=== PATIENT | female | born 1945 | race Caucasian/White ===

== ENCOUNTER → 2017-03-12 | Outpatient (CLI) | payer OTHER ==
[2017-03-12 13:09] LABS: ALT/SGPT 29 U/L (12-78); BLOOD UREA NITROGEN 17 mg/dl (7-18); BUN/CREATININE RATIO 19.5 (10-20); CARBON DIOXIDE 31 mmol/L (21-32); CHLORIDE 103 mmol/L (98-107); CHOLESTEROL 170 mg/dl (0-200); CREATININE 0.87 mg/dl (0.60-1.20); GLUCOSE 106 mg/dl (70-99); POTASSIUM 3.3 mmol/L (3.5-5.1); SODIUM 142 mmol/L (136-145); TRIGLYCERIDES 149 mg/dl (0-150); VERY LOW DENSITY LIPOPROT CALC 30 mg/dl
[2017-03-12 13:11] LABS: CALCIUM 10.5 mg/dl (8.5-10.1)
[2017-03-12 13:13] LABS: CHOLESTEROL/HDL RATIO 2.7; HDL CHOLESTEROL 62 mg/dl
[2017-03-12 13:17] LABS: ESTIMATED AVERAGE GLUCOSE 114 mg/dl; HA1C FLAG Normal (Normal)
== END | disposition home or self-care (01) ==
LOC: C.LABMFLN 07:55
PROVIDERS: ATTEND Family Medicine
DX: E78.5 Hyperlipidemia, unspecified (principal); I10 Essential (primary) hypertension; R73.01 Impaired fasting glucose; E55.9 Vitamin D deficiency, unspecified; E83.52 Hypercalcemia

== ENCOUNTER → 2017-05-26 | Outpatient (CLI) | payer OTHER | END | disposition home or self-care (01) | LOC: C.MAMM 08:27 | PROVIDERS: ATTEND Family Medicine | DX: Z13.820 Encounter for screening for osteoporosis (principal); M85.89 Other specified disorders of bone density and structure, multiple sites ==

== ENCOUNTER → 2017-09-10 | Outpatient (CLI) | payer OTHER ==
[2017-09-10 13:36] LABS: ALT/SGPT 27 U/L (12-78); BLOOD UREA NITROGEN 12 mg/dl (7-18); BUN/CREATININE RATIO 16.7 (10-20); CALCIUM 9.6 mg/dl (8.5-10.1); CARBON DIOXIDE 28 mmol/L (21-32); CHLORIDE 106 mmol/L (98-107); CREATININE 0.73 mg/dl (0.60-1.20); GLUCOSE 98 mg/dl (70-99); POTASSIUM 3.5 mmol/L (3.5-5.1); SODIUM 139 mmol/L (136-145)
== END | disposition home or self-care (01) ==
LOC: C.LABMFLN 07:30
PROVIDERS: ATTEND Family Medicine
DX: E78.5 Hyperlipidemia, unspecified (principal); I10 Essential (primary) hypertension

== ENCOUNTER → 2017-09-16 | Outpatient (CLI) | payer OTHER | END | disposition home or self-care (01) | LOC: C.LABMFLN 15:38 | PROVIDERS: ATTEND Family Medicine | DX: E83.52 Hypercalcemia (principal) ==

== ENCOUNTER → 2017-09-17 | Outpatient (CLI) | payer OTHER | END | disposition home or self-care (01) | LOC: C.LABMFLN 16:41 | PROVIDERS: ATTEND Family Medicine | DX: E83.52 Hypercalcemia (principal) ==

== ENCOUNTER → 2017-10-10 | Outpatient (CLI) | payer OTHER ==
[2017-10-10 12:51] LABS: HEMATOCRIT 40.2 % (37-47); HEMOGLOBIN 13.3 g/dL (12.0-16.0); MEAN CELL VOLUME 92.8 fL (80-100); MEAN CORPUSCULAR HEMOGLOBIN 30.7 pg (25-34); MEAN CORPUSCULAR HGB CONC 33.1 g/dl (32-36); PLATELET COUNT 311 K/uL (130-400); RED CELL DISTRIBUTION WIDTH CV 13.2 % (11.5-14.5); RED CELL DISTRIBUTION WIDTH SD 44.9 fL (36.4-46.3); WHITE BLOOD COUNT 6.45 K/uL (4.8-10.8)
== END | disposition home or self-care (01) ==
LOC: C.LABMFLN 10:08
PROVIDERS: ATTEND Family Medicine
DX: C50.919 Malignant neoplasm of unspecified site of unspecified female breast (principal); T14.8XXA Other injury of unspecified body region, initial encounter; X58.XXXA Exposure to other specified factors, initial encounter

== ENCOUNTER → 2017-10-29 | Outpatient (CLI) | payer OTHER ==
[2017-10-29 13:20] LABS: ALBUMIN 4.1 gm/dl (3.4-5.0); BLOOD UREA NITROGEN 17 mg/dl (7-18); CALCIUM 9.7 mg/dl (8.5-10.1); CARBON DIOXIDE 28 mmol/L (21-32); GLUCOSE 100 mg/dl (70-99); POTASSIUM 3.4 mmol/L (3.5-5.1); SODIUM 141 mmol/L (136-145)
[2017-10-29 13:30] LABS: PHOSPHORUS 3.4 mg/dl (2.5-4.9)
== END | disposition home or self-care (01) ==
LOC: C.LABMFLN 07:24
PROVIDERS: ATTEND Internal Medicine
DX: M85.80 Other specified disorders of bone density and structure, unspecified site (principal)

== ENCOUNTER → 2017-11-07 | Outpatient (CLI) | payer OTHER | END | disposition home or self-care (01) | LOC: C.LABMFLN 10:06 | PROVIDERS: ATTEND Family Medicine | DX: Z11.59 Encounter for screening for other viral diseases (principal) ==

== ENCOUNTER → 2017-12-24 | Outpatient (CLI) | payer OTHER ==
[2017-12-24 13:07] LABS: BLOOD UREA NITROGEN 12 mg/dl (7-18); CALCIUM 9.8 mg/dl (8.5-10.1); CARBON DIOXIDE 31 mmol/L (21-32); CREATININE 0.81 mg/dl (0.60-1.20); GLUCOSE 103 mg/dl (70-99); POTASSIUM 3.4 mmol/L (3.5-5.1); SODIUM 139 mmol/L (136-145)
== END | disposition home or self-care (01) ==
LOC: C.LABMFLN 08:22
PROVIDERS: ATTEND Internal Medicine
DX: M85.80 Other specified disorders of bone density and structure, unspecified site (principal); E78.5 Hyperlipidemia, unspecified; E55.9 Vitamin D deficiency, unspecified; E21.3 Hyperparathyroidism, unspecified; E83.52 Hypercalcemia

== ENCOUNTER 2019-09-29 05:42 | Observation (INO) ==
--- NOTE | 2019-09-20 08:42 | PAT Medication Instructions ---
Medication Instructions Date of Service September 20, 2019 Home Medications B-complex with vitamin C 1 tab PO DAILY albuterol sulfate 90 mcg/actuation aerosol inhaler 2 puffs INHALATION Q4H PRN aspirin 81 mg tablet,delayed release 81 mg PO QPM cholecalciferol (vitamin D3) 3,000 unit tablet 3,000 units PO DAILY anastrozole 1 mg PO QAM ascorbic acid (vitamin C) 500 mg PO DAILY atenolol 25 mg PO QAM atorvastatin 10 mg PO UD fluticasone propionate 2 sprays INTRANASAL DAILY PRN hydrochlorothiazide 12.5 mg PO QAM pantoprazole 40 mg PO QAM potassium chloride 10 meq PO UD ASK your surgeon for instructions aspirin 81 mg tablet,delayed release 81 mg PO QPM DO NOT take the morning of surgery B-complex with vitamin C 1 tab PO DAILY cholecalciferol (vitamin D3) 3,000 unit tablet 3,000 units PO DAILY ascorbic acid (vitamin C) 500 mg PO DAILY hydrochlorothiazide 12.5 mg PO QAM potassium chloride 10 meq PO UD Take morning of surgery With a small sip of water, OTHERWISE NOTHING TO EAT OR DRINK AFTER MIDNIGHT: albuterol sulfate 90 mcg/actuation aerosol inhaler 2 puffs INHALATION Q4H PRN (if needed, and bring with you to the hospital) anastrozole 1 mg PO QAM atenolol 25 mg PO QAM atorvastatin 10 mg PO UD fluticasone propionate 2 sprays INTRANASAL DAILY PRN (if needed) pantoprazole 40 mg PO QAM Other Notes If you have any questions please call us at [phone] or [phone] or [phone] or [phone]
--- NOTE | 2019-09-20 10:01 | Anesthesiology Consultation ---
Date of Service September 20, 2019 Assessment & Plan (1) Encounter for pre-operative examination: Chart Review Chart Review: Acceptable Risk for Surgery and Patient seen in Pre Admission Testing Teaching & Discussion Instructed NPO after midnight before surgery, except medications with 15 cc of water. Medication instructions provided according to the PAT guidelines. History Surgery Operation Date: 09/29/19 07:30 Proposed Procedures p Robotic Laparoscopic Fundoplication, - Kevin Interiano MD, FACS s with Esophagogastroduodenoscopy - Kevin Interiano MD, FACS Height/Weight Height: 5 ft 1 in Weight: 76.4 kg Allergies Allergy/AdvReac Type Severity Reaction Status Date / Time adhesive tape Allergy Intermediate SKIN Verified 09/16/19 15:13 BLISTERS propoxyphene [From Darvon] Allergy Intermediate "SPACED Verified 09/16/19 15:13 OUT" sertraline Allergy Intermediate HYPERACTIVE Verified 09/16/19 15:13 Penicillins Allergy Mild Rash Verified 09/16/19 15:13 diclofenac AdvReac Mild UPSET Verified 09/16/19 15:13 STOMACH Medications Home Medications Medication Instructions Recorded Confirmed Last Taken B-complex with vitamin C 1 tab PO DAILY 06/10/19 09/16/19 Unknown albuterol sulfate 90 mcg/actuation 2 puffs INHALATION Q4H PRN #1 gm 06/10/19 09/16/19 Unknown aerosol inhaler aspirin 81 mg tablet,delayed 81 mg PO QPM tab 06/10/19 09/16/19 Unknown release cholecalciferol (vitamin D3) 3,000 3,000 units PO DAILY tab 06/10/19 09/16/19 Unknown unit tablet anastrozole 1 mg PO QAM 09/16/19 09/16/19 Unknown ascorbic acid (vitamin C) [Vitamin 500 mg PO DAILY 09/16/19 09/16/19 Unknown C] atenolol 25 mg PO QAM 09/16/19 09/16/19 Unknown atorvastatin 10 mg PO UD 09/16/19 09/16/19 Unknown fluticasone propionate 2 sprays INTRANASAL DAILY PRN 09/16/19 09/16/19 Unknown hydrochlorothiazide 12.5 mg PO QAM 09/16/19 09/16/19 Unknown pantoprazole 40 mg PO QAM 09/16/19 09/16/19 Unknown potassium chloride 10 meq PO UD 09/16/19 09/16/19 Unknown Past Medical History Medical History Asthma USING RESCUE INHALER < ONCE PER MONTH Breast cancer CHEMO/RADIATION Deviated septum Fatty liver GERD (gastroesophageal reflux disease) Hiatal hernia History of anxiety Hyperlipidemia Hypertension Osteoarthritis Exercise / Class Metabolic Activity II 4-5 Yardwork/Stairs/Walk up hill (Has flight of 17 steps at home, does many times daily; some mild SOB at the top, denies chest pain.) Past Family History Family History Grandmother (Maternal) Ovarian cancer Cancer Coronary heart disease Grandmother (Paternal) Ovarian cancer Cancer Uncle Myocardial infarction Coronary heart disease Mother Cancer Hypertension Arthritis Father Lung disease Brother Kidney disease Hypertension Stroke Arthritis Sister Hypertension Gallbladder disease Arthritis Past Surgical History Surgical History H/O breast biopsy History of anesthesia reaction DIFFICULTY BREATHING AFTER ANESTHESIA/REQUIRES OXYGEN History of appendectomy History of blepharoplasty UPPER LID History of carpal tunnel surgery RT/LEFT History of section X 3 History of cholecystectomy History of colonoscopy History of dilatation and curettage MULTIPLE TIMES History of esophagogastroduodenoscopy (EGD) History of partial mastectomy of right breast History of tooth extraction History of vascular access device 2013 PORT/REMOVED Hx of cervical polypectomy Hx of total hysterectomy Past Anesthesia History No Family Hx of Anesthesia Complications Pt states she has required O2 via NC after many surgeries; denies reintubation /transfer to higher level of care. History of PONV No Hx of PONV and Hx of Motion Sickness Social History Smoking Status: Never smoker Do You Dip or Chew Tobacco: No Hx Alcohol Use: Yes Alcohol type: wine alcohol intake frequency: a few times a month Hx Substance Use: No substance use type: does not use Review of Systems Pt denies any recent chest pain, shortness of breath, palpitations, cough, fever or URI. +sinus congestion Physical Exam Vital Signs BP: 121/64 P: 55bpm SPO2: 97% RA T: 97.6 F R: 16 ENMT Mouth: + dental restorations (one implant and crown on molar) and + chipped teeth (upper R incisor); no loose teeth Thyromental Distance: > or= 3.5 Finger Breadths (3.5) Mallampati Class: III Neck normal visual inspection; neck extension not limited Respiratory normal respiratory effort Auscultation: lungs clear to auscultation bilaterally Cardiovascular Rate/Rhythm: regular rhythm and + bradycardic Heart Sounds: no murmur Vessels: no carotid bruit Extremities: no edema Testing Laboratory Results 09/20/19 10:05 Blood Type A Positive 09/20/19 10:05 Antibody Screen NEGATIVE 09/20/19 10:05 09/14/19 SODIUM: 140 POTASSIUM: 3.8 CHLORIDE: 101 CO2: 32 BUN: 13 CREATININE: 0.81 Electrocardiogram Date: 09/20/19 Findings: + SB @ (53bpm)
[2019-09-20 10:42] LABS: Basophils # (auto) 0.02 K/uL (0-0.2); Basophils % (auto) 0.3 %; Eosinophils # (auto) 0.17 K/uL (0-0.5); Eosinophils % (auto) 2.3 %; Hematocrit (blood only) 39.8 % (37-47); Hemoglobin 13.3 g/dL (12.0-16.0); Immature Granulocytes # (auto) 0.01 K/uL (0.00-0.02); Immature Granulocytes % (auto) 0.1 %; Lymphocytes # (auto) 1.71 K/uL (1.2-3.4); Lymphocytes % (auto) 23.5 %; Mean Corpuscular Hemoglobin 31.1 pg (25-34); Mean Corpuscular Hgb Conc 33.4 g/dL (32-36); Mean Corpuscular Volume 93.2 fL (80-100); Mean Platelet Volume 8.7 fL (7.4-10.4); Monocytes # (auto) 0.55 K/uL (0.11-0.59); Monocytes % (auto) 7.6 %; Neutrophils # (auto) 4.81 K/uL (1.4-6.5); Neutrophils % (auto) 66.2 %; Platelet Count 321 K/uL (130-400); RDW Standard Deviation 44.2 fL (36.4-46.3); Red Blood Count 4.27 M/uL (4.2-5.4); White Blood Count 7.27 K/uL (4.8-10.8)
[2019-09-29] MEDS ORDERED: LR 15ML/HR IV SCH (06:00)
[2019-09-29] MEDS ORDERED: LIDOCAINE HCL 2% 2 ML VIAL/AMP(20MG/ML) INFIL ONE (07:00)
[2019-09-29] MEDS ORDERED: PROPOFOL IV EMULSION 10 MG/ML 20 ML VIAL IV ONE (07:00)
[2019-09-29] MEDS ORDERED: ONDANSETRON INJ 2 MG/ML 2 ML VIAL ONE (07:00)
[2019-09-29] MEDS ORDERED: ROCURONIUM BROMIDE 10 MG/ML 5 ML VIAL ONE ×3 (07:00→09:18)
[2019-09-29] MEDS ORDERED: fentaNYL citrate 100 MCG/2 ML VIAL ONE (07:01)
[2019-09-29] MEDS ORDERED: MIDAZOLAM HCL 1 MG/ML 2ML VIAL ONE (07:01)
[2019-09-29] MEDS ORDERED: BUPIVACAINE 0.5 % 5 MG/1 ML MPF 30ML VIAL ONE (07:02)
[2019-09-29] MEDS ORDERED: BUPIVACAINE LIPOSOME 1.3% 266 MG/20 ML VIAL ONE (07:03)
[2019-09-29] MEDS ORDERED: SODIUM CHLORIDE 0.9% PF 50 ML VIAL ONE (07:03)
--- NOTE | 2019-09-29 07:10 | History & Physical Bridge Note ---
Date of Service September 29, 2019 History & Physical Bridge Note I have examined the patient, reviewed the History & Physical and in the interval since the performance of the History & Physical I have noted the following changes of clinical significance: no changes noted
[2019-09-29] MEDS ORDERED: KETOROLAC 30 MG/ML VIAL IV PRN (07:17)
[2019-09-29] MEDS ORDERED: HYDROmorphone INJ 1 MG/ML SYRINGE IV PRN (07:17)
[2019-09-29] MEDS ORDERED: ATROPINE SULFATE 0.1 MG/ML 10ML SYR IV PRN (07:17)
[2019-09-29] MEDS ORDERED: LABETALOL HCL IV 5 MG/ML 20ML IV PRN (07:17)
[2019-09-29] MEDS ORDERED: ONDANSETRON INJ 2 MG/ML 2 ML VIAL IV PRN (07:17)
[2019-09-29] MEDS ORDERED: CEFAZOLIN 2000MG 2,000 MG/15 ML SYR IV ONE (09:00)
--- NOTE | 2019-09-29 10:31 | Operative Report ---
PG Post Operative Report Pre & Post Diagnosis Operation Date: 09/29/19 07:30 Pre-Op Diagnosis: Hiatal Hernia; GERD Post-Op Diagnosis: Hiatal Hernia: GERD I identified the patient and participated in the time-out.: Yes Procedure Operation Date: 09/29/19 07:30 Actual Procedures p Robotic ASSISTED Laparoscopic Lupe Fundoplication(Not Applicable) - Kevin Interiano MD, FACS s with Esophagogastroduodenoscopy(Not Applicable) - Kevin Interiano MD, FACS Surgeon Kevin Interiano MD, FACS Exhibition Organiser Juan Albreto ROTH Estimated Blood Loss 10 Findings Consistent with Post-Op Diagnosis Specimens hernia sac and GE fat pad Anesthesia Type General Complications none Disposition Accompanied Patient To Recovery: Yes Disposition: Recovery Room Description of Procedure This is a 73-year-old female with a history of gastroesophageal reflux with persistent esophagitis despite medical management. Her symptoms of also been persistent. She does have a small sliding hernia. I saw her in the office on a few occasions had a long discussion with the patient and her and she finally got to the point where she was desirous of having this repaired to alleviate her symptoms. 09/29/2019 the patient underwent uncomplicated robot-assisted laparoscopic takedown of her hiatal hernia. I performed a repair of the hernial defect and patched it with an op attacks bioabsorbable patch. I then performed a floppy Lupe fundoplication. Performed a gastro-esophagoscopy and the repair looked quite good as did the fundoplication. She tolerated it well. Procedure: Patient was brought to the operating room laid supine position. General anesthesia was induced endotracheal the patient was formed single-lumen tube. Appropriate monitoring lines and IVs have been placed the patient was left in supine position and after appropriate timeout been called antibiotics given admitted incision in the midline. Using the 5 mm scope we entered the stomach cavity without difficulty. There were no adhesions whatsoever. This 5 mm port was switched over to a 12 mm camera port. Then placed 8 mm ports the midclavicular line just under the costal margin on the right and down a bit further on the left. A 5 mm port was placed laterally and inferiorly we placed a liver retractor and in this pulled the left lobe of the liver up nicely and we could see the GE junction and the hiatus quite nicely. Another 5 mm port was placed for a 5 mm grasper on the left lateral or inferior aspect. We placed a 12 mm assistance port just to the left of the umbilicus. Patient was placed in reverse Trendelenburg position and the robot was docked. I then took down the short gastrics right away and this brought me up to the left crura. I then scored the the peritoneum and brought down the sac without difficulty. Our eso phagus had plenty of length. I then removed the hernia sac and the gastroesophageal junction after identifying the vagus nerve both anteriorly and posteriorly. The hiatal defect was quite large actually. I placed 3 separate [id number] silk sutures posteriorly brought this together nicely. A bioabsorbable Apetex patch was then sutured over the repair with 2-0 Vicryl suture. This settled very nicely. Was under no tension. After performing a "shoeshine maneuver" to ensure there was no folding of fundus, we then did a floppy Lupe fundoplication with 3 sutures. The first suture was just from the posterior to the anterior fundus and the last 2 incorporated the esophagus. This was under no tension. I placed a single suture anteriorly to tack the fundus to the anterior diaphragm. This all sat very nicely under no tension. I then performed an esophagoscopy after we undocked the robot. The esophagus and the GE junction was quite good. The scope went in easily into the stomach. On retroflexion can be seen we had a nice fundoplication. We also had no evidence of an air leak. This stomach was suctioned out as we removed the esophagoscope. She tolerated procedure very well with negligible blood loss and was extubated in the room. I attest to the content of the Intraoperative Record and any orders documented therein. Any exceptions are noted below.
[2019-09-29] MEDS ORDERED: METOCLOPRAMIDE HCL INJ 5 MG/ML 2 ML VIAL IV ONE (10:40)
--- NOTE | 2019-09-29 10:53 | XRay Report ---
XR chest 1V portable HISTORY: 73 years-old Female s/p ronald follow-up Ronald fundoplication COMPARISON: CT abdomen and pelvis 09/23/2018 TECHNIQUE: Portable AP view of the chest FINDINGS: Cardiac silhouette is enlarged, unchanged. Mild asymmetric right hilar prominence. No definitive pneu mothorax or large pleural effusion. Right hemidiaphragmatic elevation persists. Left basilar opacitie s. No overt pulmonary edema. Degenerative changes of the shoulders and spine. Cholecystectomy. A larg e amount of subcutaneous emphysema projects over the bilateral chest vargas and supraclavicular distri butions. Pneumomediastinum. IMPRESSION: 1. Pneumomediastinum is noted along with a large amount of subcutaneous emphysema about the chest wal l and supraclavicular distributions, likely on a postsurgical basis. No definite pneumothorax identif ied. 2. Right hemidiaphragm elevation redemonstrated. 3. Left basilar opacities, possibly atelectatic. ACT 112: Negative or not required by law. The above report was generated using voice recognition software. It may contain grammatical, syntax o r spelling errors. Electronically signed by: Neptali Callejas M.D. 09/29/2019 10:51 AM
[2019-09-29] MEDS ORDERED: ALBUTEROL HFA 8 GM INHALER INH PRN (12:18)
[2019-09-29] MEDS ORDERED: FLUTICASONE PROPIONATE NA SPR 16 GM BTL PRN (12:18)
[2019-09-29] MEDS ORDERED: OXYCODONE HCL IR 5 MG TAB (IMMEDIATE RELEASE) PO PRN (12:18)
[2019-09-29] MEDS ORDERED: MoRPHine SULFATE 2 MG/ML CARP IV PRN (12:18)
[2019-09-29] MEDS ORDERED: GLYCOPYRROLATE 0.2 MG/ML VIAL ONE (13:11)
[2019-09-29] MEDS ORDERED: NEOSTIGMINE METHYLSULFATE 5 MG/5 ML SYR ONE (13:11)
--- NOTE | 2019-09-29 13:17 | Anesthesiology Progress Note ---
Date of Service September 29, 2019 Anesthesia Post Procedure Vital Signs Vital Signs: Temp Pulse Pulse Resp BP BP Pulse Ox 09/29/19 12:35 36.5 C 81 16 124/70 100 09/29/19 12:05 36.5 C 71 15 117/67 98 09/29/19 11:50 75 17 121/58 L 99 09/29/19 11:40 36.2 C L 64 17 116/58 L 100 09/29/19 11:30 36.2 C L 74 18 123/59 L 99 09/29/19 11:20 76 19 124/62 99 09/29/19 11:10 77 24 126/64 99 09/29/19 11:00 76 22 133/70 100 09/29/19 10:50 86 19 147/71 H 100 09/29/19 10:40 36.4 C L 107 H 18 137/76 99 09/29/19 06:26 36.6 C 62 20 137/66 99 Pain Intensity Abdomen: Pain Intensity: 4 Transfer of Care Handoff Completed per policy Notes Mental Status: alert / awake / arousable Patient Amnestic to Procedure: Yes Nausea / Vomiting: adequately controlled Pain: adequately controlled Airway Patency, RR, SpO2: stable & adequate BP & HR: stable & adequate Hydration State: stable & adequate Anesthetic Complications: no major complications apparent
[2019-09-29] MEDS: ONDANSETRON INJ 2 MG/ML 2 ML VIAL IV SCH ×3 (14:20→20:40)
[2019-09-29] MEDS: ACETAMINOPHEN 1,000 MG/100 ML VIAL IV SCH ×2 (14:26→20:39)
[2019-09-29] MEDS: D5W AND 1/2NSS 1,000 ML IV SCH (14:27)
[2019-09-29] MEDS: METOCLOPRAMIDE HCL INJ 5 MG/ML 2 ML VIAL IV SCH (18:13)
[2019-09-29] MEDS: DOCUSATE SODIUM 100 MG CAP PO SCH (20:39)
[2019-09-29] MEDS: MUPIROCIN 2% OINT 22 GM TUBE EXT SCH (20:39)
[2019-09-29] MEDS: BUDESONIDE/FORMOTEROL FUMARATE 80/4.5 60 PUFFS/INHALER INH SCH (20:40)
[2019-09-29] MEDS ORDERED: ASPIRIN 81 MG ECTAB PO SCH (21:00)
[2019-09-30] MEDS: ONDANSETRON INJ 2 MG/ML 2 ML VIAL IV SCH ×4 (00:12→12:22)
[2019-09-30] MEDS: D5W AND 1/2NSS 1,000 ML IV SCH ×2 (00:13→08:38)
[2019-09-30] MEDS: METOCLOPRAMIDE HCL INJ 5 MG/ML 2 ML VIAL IV SCH (02:31)
[2019-09-30] MEDS: ACETAMINOPHEN 1,000 MG/100 ML VIAL IV SCH (05:10)
[2019-09-30 07:31] LABS: Creatinine Clr Calc Pharmacy 59.6 ml/min; Est GFR (African American) 86.8; Est GFR (Non-African American) 74.9
--- NOTE | 2019-09-30 08:28 | Fluoroscopy Report ---
ESOPHAGRAM UTILIZING [email or web address] CLINICAL HISTORY: s/p Lupe COMPARISON STUDY: Barium swallow March 05, 2019. FLUOROSCOPY TIME: 0.9 minutes. FLUOROSCOPIC IMAGES: 11 FINDINGS: No esophageal mass or stricture was identified although mucosal detail is diminished on thi s single contrast examination. No contrast extravasation was noted. The wrap is intact. Appropriate n arrowing of the proximal stomach is noted. Normal gastric emptying is noted. Left basilar opacity is noted. Extraluminal gas is postsurgical. IMPRESSION: Expected findings following Lupe fundoplication. No contrast extravasation. Normal gastric emptying . ACT 112: Negative or not required by law. Electronically signed by: Munir Felipe M.D. 09/30/2019 8:27 AM
[2019-09-30] MEDS: MUPIROCIN 2% OINT 22 GM TUBE EXT SCH (08:31)
[2019-09-30] MEDS: BUDESONIDE/FORMOTEROL FUMARATE 80/4.5 60 PUFFS/INHALER INH SCH (08:31)
[2019-09-30] MEDS: DOCUSATE SODIUM 100 MG CAP PO SCH (08:31)
[2019-09-30] MEDS ORDERED: ENOXAPARIN INJ 40 MG/0.4 ML SYR SQ SCH (09:00)
[2019-09-30] MEDS ORDERED: ATORVASTATIN 10 MG TAB PO SCH (09:00)
[2019-09-30] MEDS ORDERED: PANTOprazole 40 MG TAB PO SCH (09:00)
[2019-09-30] MEDS ORDERED: ANASTROZOLE 1 MG TAB PO SCH (09:00)
[2019-09-30] MEDS ORDERED: ATENOLOL 25 MG TABLET PO SCH (09:00)
[2019-09-30] MEDS ORDERED: ACETAMINOPHEN 325 MG TAB PO SCH (12:00)
--- NOTE | 2019-09-30 14:07 | Discharge Summary ---
DATE OF ADMISSION: 09/29/2019 DATE OF DISCHARGE: 09/30/2019 ADMISSION DIAGNOSES: 1. Medically refractory gastroesophageal reflux disease. 2. Hiatal hernia. DISCHARGE DIAGNOSES: 1. Medically refractory gastroesophageal reflux disease. 2. Hiatal hernia. HOSPITAL COURSE: This is a 73-year-old female who has been troubled with gastroesophageal reflux disease with esophagitis for many years. She did not respond to maximal medical therapy. We have finally elected to proceed with an antireflux procedure. On 09/29/2019, the patient underwent an uncomplicated robot-assisted thoracoscopic repair of her hiatal hernia with reinforcement using OviTex bioprosthetic patch. I then did a floppy Lupe fundoplication. On-table esophagoscopy looked quite good. Her postoperative course was unremarkable. She tolerated clear liquids. She was ambulating in the hallway. Her pain was very well controlled. The morning after surgery, a barium swallow was performed which looked quite good. There was normal gastric emptying. The patient was discharged home on postop day 1. I will see her back in the office in about 2 weeks. I am quite pleased she is tolerating liquids quite well.
== END 2019-09-30 14:32 | disposition home or self-care (01) ==
LOC: 3W 05:42 → ASU 05:42